=== PATIENT | female | born 1995 | race Caucasian/White ===

== ENCOUNTER 2020-11-06 21:07 | Emergency (ER) | payer SELFPAY ==
[2020-11-06 21:08] VITALS: BP 129/80; PULSE 84; RESP 18; TEMP 36.4; O2SAT 98; BMI 352.1
--- NOTE | 2020-11-06 22:51 | RAD_ITS ---
EXAM: XR CHEST, 2 VIEWS : 1995 CLINICAL INDICATION: cough TECHNIQUE: Frontal and lateral views of the chest. This report was created using [employer] report generation technology. COMPARISON: None. FINDINGS: LUNGS AND PLEURAL SPACES: Unremarkable. No consolidation or edema. No pneumothorax. No effusion. HEART: Unremarkable. Cardiac silhouette not enlarged. MEDIASTINUM: Central airways and mediastinal contour are unremarkable. BONES/JOINTS: Unremarkable. SOFT TISSUES: Unremarkable. RAD/Chest PA and Lateral IMPRESSION: No radiographic evidence of acute cardiopulmonary disease. at 2333 Reported and signed by: Reynaldo Stephenson MD Electronically Signed: Reynaldo Stephenson MD at 23:32 EDT Tel , Service support ,
--- NOTE | 2020-11-06 22:51 | EX.ED.DYSGE1 ---
HPI History of Present Illness Chief Complaint: General Illness Informant: patient Narrative Narrative: Patient presents with a week of cough. She also has some mild body aches and a slight runny nose. No real headache. No rashes. No nausea vomiting or GI symptoms. 1 day after symptoms she had a negative Covid. She was seen in urgent care 5 days ago and told she had some fluid in the ears but she should be rechecked if she is not better today. She gets a dry cough. But she is not short of breath. No sputum no hemoptysis. No chest pain. Nothing specifically makes her symptoms better or worse. She is able to carry on normal activity. [facility] Medical History (Updated 11/07/20 @ 00:[address] Fabio Gotti MD) Depression no medical history Allergy/AdvReac Type Severity Reaction Status Date / Time No Known Allergies Allergy Verified 11/06/20 21:12 Social History Smoking Status: Never smoker ROS ROS ED Constitutional Constitutional ED: Reports chills and fever(s); Denies weight loss Eyes Eyes: Denies blurry vision ENT ENT ED: Reports rhinorrhea; Denies ear pain or sore throat Cardiovascular Cardiovascular: Denies chest pain, orthopnea or palpitations Respiratory/Chest Respiratory/Chest: Reports cough; Denies dyspnea, dyspnea on exertion, orthopnea or sputum Gastrointestinal Gastrointestinal: Denies abdominal pain, nausea or vomiting Genitourinary Genitourinary ED: Denies dysuria Musculoskeletal Musculoskeletal: Reports myalgias; Denies arthralgias Integumentary Denies rash Neurologic Neurologic: Denies headache(s) Endocrine Endocrinology: Denies polydipsia or polyuria Allergic/Immunologic Allergic/Immunologic ED: Denies urticaria EXAM Physical Exam Const Vital Signs: 11/06/20 21:08 11/06/20 22:54 Temperature 97.6 F L Temperature Source Temporal Pulse Rate 84 Respiratory Rate 18 Respiratory Effort Normal Respiratory Pattern Normal Blood Pressure 129/80 H Blood Pressure Mean 96 Pulse Ox 98 Oxygen Delivery Method Room Air Positive well nourished and well developed General Appearance ED: well developed and NAD HEENT Reports moist mucous membranes HEENT Narrative: Tympanic membrane's are clear. Mild clear rhinorrhea. No facial tenderness. Eyes PERRL and EOMs intact bilaterally Neck no lymphadenopathy and supple Chest Wall inspection of chest normal and palpation of chest normal Resp normal respiratory effort and clear to auscultation bilaterally Effort and Inspection: Negative for pain with movement Auscultation: Negative for rales, rhonchi or wheezes Cardio regular rate and regular rhythm GI normal to inspection, nondistended, normoactive bowel sounds and non-tender Palpation: soft Extremity normal to inspection General Extremety ED: Negative for edema or tenderness General Extremity: Negative for edema Neuro Sensorium / Orientation: alert Psych mental status grossly normal Skin no rashes or lesions noted MDM MDM MDM Narrative Medical decision making narrative: Chest x-ray and Covid are negative. I talked to the patient. This is likely a viral illness. Does not need antibiotics. Time, rest and [id number] medication should be appropriate. Lab Data Attestation: I reviewed the patient's lab results. Radiography Diagnostic Testing: Radiology Impression Chest X-Ray 11/06/20 22:51 IMPRESSION: No radiographic evidence of acute cardiopulmonary disease. at 2333 Reported and signed by: Reynaldo Stephenson MD Electronically Signed: Reynaldo Stephenson MD at 23:32 EDT Tel , Service support , Discharge Plan Triage Chief Complaint: General Illness ED Provider: Fabio Gotti Dx/Rx/DC Orders Clinical Impression: URI (upper respiratory infection) Instructions: ED URI, Viral, No Abx (Adult) Primary Care Provider: Trae Doan Referrals: Trae Doan MD [Primary Care Provider] - 1 Week if not improving Disposition Disposition: Home, Self Care
[2020-11-07 00:14] VITALS: RESP 16
== END 2020-11-07 00:15 | disposition home or self-care (01) ==
PROVIDERS: Emergency Provider Emergency Medicine; PCP Family Medicine
DX: J06.9 Acute upper respiratory infection, unspecified (principal)
CPT/HCPCS: 71046; 87426; 99282